=== PATIENT | male | born 1950 | race Caucasian/White ===

== ENCOUNTER 2017-09-25 15:55 | Emergency (ER) | payer MEDICARE, OTHER ==
[2017-09-25 16:14] VITALS: BP 142/83
--- OUTSIDE RECORDS SUMMARY | 2017-09-25 16:29 | XMS REPORT ---
:1950 External Reference #:[id number] Author Organization [facility] Address [address] [place] [address] Phone [phone] Care Team Providers Name Role Phone Slade Phan MD Care Team Information Manager [employer] Unavailable Slade Phan MD Primary Care Physician Unavailable Payers Type Date Identification Numbers Payment Provider Subscriber Health Maintenance Effective: Policy Number: Stanley Mustafa [facility] [place] [place] 05/19/2012 [id number] [facility] Group Number: [id number] [id number] Group Name: KATHY Allen [id number] PayID: [id number] Problems Date Description Provider Status Onset: 03/02/2013 Cellulitis and abscess of finger Slade Phan M.D. Active Social History Type Date Description Comments Cigarette Use Nonsmoker Smoking Patient has never smoked Allergies, Adverse Reactions, Alerts Date Description Reaction Status Severity Comments 03/02/2013 NKDA active Medications Medication Date Status Form Strength Qnty SIG Indications Ordering Provider Vitamin B12 Active Tablets ER 1 by mouth Unknown /0000 every day Multi Vitamin Active Tablets once daily Unknown / otc Docetaxel Active Concentrate 20mg/ml Unknown Lupron Active Unknown / Enoxaparin 07/30 Hx Solution 40mg/0.4M 40 mg sq L once a day Testing - for 30 days Doctor 07/30 Levofloxacin 07/30 Hx Tablets 500mg 7tabs 1 by mouth every day Testing - Doctor 07/30 No Active 03/24 Hx Slade A. Medications Sylvester - M.DMehrdad 07/30 Zithromax Z-Erick 03/14 Hx Tablets 250mg 1tabs 2 po qd x1 460 Slade A. then 1 po Sylvester, - qd as M.D. 03/19 Carpal Tunnel 05/10 Hx Right, 1unit wear as 354.0 Slade AMehrdad Bra Large s directed Sylvester, - including M.D. 03/14 sleep Pen VK 10/05 Hx 500mg 20uni 1 bid 462 Slade A. ts Sylvester - M.DMehrdad 10/15 Amoxil 06/11 Hx Tablets 875mg 20tab 1 PO bid Slade A. s Sylvester - M.D. 06/21 Nystatin Cream 05/06 Hx 60gm apply bid 782.1 prn Melo, - Afnp-C 10/05 Cipro HC Otic 12/08 Hx Suspension 10ml 3 gtts 380.10 Slade A. Affected Sylvester, - Ear bid X 7 M.D. 12/15 Days Pen VK 07/16 Hx Tablets 500mg 40tab 1 po qid Slade A. s Sylvester - M.D. 07/27 Hearing Test 01/14 Hx PT needs to Slade A. have A Sylvester, - hearing M.D. 10/22 test done. hearing loss r ear. Vosol HC 01/11 Hx Solution 2%;3 %;1 1Bott 4-5 gtts Miguel T. % le affected [place], - ear tid M.D. 02/11 until clear Cortisporin 11/27 Hx Suspension 5mg;48825 1Bott 4-5 gtts RT Miguel T. Otic U;10mg/ML le ear tid Midura, - until clear M.D. 01/11 Floxin Otic 11/20 Hx 1Bott 10 gtts le Affected [place], - Ear bid Afnp-C 11/27 Westcort 11/20 Hx Cream 0.2% 30gm apply to affected [place], - area Afnp-C 10/05 bid-tid prn /2008 Augmentin 11/14 Hx Tablets 875mg 20tab 1 PO bid Slade AMehrdad s With Food Sharath Phan M.D. 11/24 Bextra 03/10 Hx 20mg 30uni One PO Slade AMehrdad ts Daily as Sylvester - Directed [place] 04/09 Patella 03/10 Hx 1unit Wear as Slade Santillan s Directed Dionicio Phan - [place] 04/09 Physical 11/24 Hx Treatment [facility] - Evaluation M.Adolfo 12/14 Of Spine Strain Naproxen 11/24 Hx 375mg Tab 30uni 1 PO tid Kyaw Sheppard ts prn Pain Sharath Cornejo M.D. 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 Sharath Oropeza M.D. 07/10 Vioxx 06/30 Hx 50mg 30uni 1 PO qd Slade A. Sharath Oropeza M.D. 10/29 Augmentin 11/25 Hx 875mg 20uni 1 bid Slade A. Sharath Oropeza M.D. 07/17 Relafen 11/25 Hx 500mg 30uni 1 PO bid Slade A. Sharath Oropeza M.D. 07/17 Acetaminophen 00 Hx Tablets ER 650mg take one Unknown ER /0000 tablet q6h - as needed 07/30 or Colace Hx Capsules 100mg 1 by mouth Unknown /0000 twice daily - 07/30 Lovenox Hx Solution 40mg/0.4M daily Unknown /0000 L - 07/30 Oxycodone HCL 00/00 Hx Tablets 5mg 1 by mouth Unknown /0000 every 4 - hours as 07/30 Immunizations CPT Code Status Date Vaccine Lot # [id number] Given 10/19/2012 Tdap Tetanus, W Pertussis [id number] Given 11/14/2004 Td Immunization, For Use In Individuals 7 Years Or Older Vital Signs Date Vital Result Comment 09/25/2017 BP Systolic 120 mmHg BP Diastolic 62 mmHg Heart Rate 72 /min Body Temperature 98.4 F Respiratory Rate 16 /min Height 74 inches 6'2" Weight 230.50 lb BMI (Body Mass Index) 29.6 kg/m2 07/30/2017 BP Systolic 126 mmHg BP Diastolic 82 mmHg Heart Rate 64 /min Body Temperature 99.1 F Respiratory Rate 16 /min Height 74 inches 6'2" Weight 196.00 lb BMI (Body Mass Index) 25.2 kg/m2 03/01/2015 BP Systolic 134 mmHg BP Diastolic 82 mmHg Heart Rate 54 /min Body Temperature 98.4 F Respiratory Rate 16 /min Height 74 inches 6'2" Weight 187.38 lb BMI (Body Mass Index) 24.1 kg/m2 03/24/2013 BP Systolic 130 mmHg BP Diastolic 80 mmHg Heart Rate 56 /min Body Temperature 97.9 F Respiratory Rate 16 /min Height 74 inches 6'2" Weight 188.00 lb BMI (Body Mass Index) 24.1 kg/m2 03/02/2013 BP Systolic 134 mmHg BP Diastolic 80 mmHg Heart Rate 66 /min Body Temperature 97.2 F Respiratory Rate 18 /min Height 74 inches 6'2" Weight 191.00 lb BMI (Body Mass Index) 24.5 kg/m2 10/19/2012 BP Systolic 124 mmHg BP Diastolic 80 mmHg Heart Rate 68 /min Body Temperature 98.1 F Respiratory Rate 18 /min Height 74 inches 6'2" Weight 194.25 lb BMI (Body Mass Index) 24.9 kg/m2 03/14/2010 BP Systolic 120 mmHg BP Diastolic 80 mmHg Heart Rate 56 /min Body Temperature 98.2 F Respiratory Rate 16 /min O2 % BldC Oximetry 99 % Height 74 inches 6'2" Weight 184.00 lb BMI (Body Mass Index) 23.6 kg/m2 05/10/2009 BP Systolic 126 mmHg BP Diastolic 80 mmHg Heart Rate 64 /min Body Temperature 97.3 F Respiratory Rate 12 /min Height 74 inches 6'2" Weight 192.00 lb BMI (Body Mass Index) 24.6 kg/m2 10/05/2008 BP Systolic 140 mmHg BP Diastolic 82 mmHg Heart Rate 64 /min Body Temperature 98.7 F Respiratory Rate 16 /min Height 74 inches 6'2" Weight 192.00 lb BMI (Body Mass Index) 24.6 kg/m2 01/27/2008 BP Systolic 128 mmHg BP Diastolic 80 mmHg Heart Rate 60 /min Body Temperature 97.2 F Respiratory Rate 16 /min Height 74 inches 6'2" Weight 188.00 lb BMI (Body Mass Index) 24.1 kg/m2 05/06/2007 BP Systolic 102 mmHg BP Diastolic 60 mmHg Heart Rate 68 /min Body Temperature 97.3 F Height 74 inches 6'2" Weight 185.00 lb BMI (Body Mass Index) 23.8 kg/m2 04/23/2007 BP Systolic 146 mmHg BP Diastolic 62 mmHg Heart Rate 64 /min Body Temperature 97.8 F Height 74 inches 6'2" Weight 189.00 lb BMI (Body Mass Index) 24.3 kg/m2 12/08/2006 BP Systolic 120 mmHg BP Diastolic 62 mmHg Heart Rate 72 /min Body Temperature 98.5 F Height 74 inches 6'2" Weight 187.00 lb BMI (Body Mass Index) 24.0 kg/m2 10/22/2006 BP Systolic 110 mmHg BP Diastolic 70 mmHg Heart Rate 64 /min Body Temperature 98.7 F Weight 189.00 lb 07/15/2006 BP Systolic 128 mmHg BP Diastolic 70 mmHg Heart Rate 76 /min Body Temperature 99.2 F Weight 194.00 lb 01/14/2005 BP Systolic 112 mmHg BP Diastolic 70 mmHg Heart Rate 72 /min Body Temperature 97.7 F Weight 186.00 lb 11/27/2004 BP Systolic 124 mmHg BP Diastolic 80 mmHg Heart Rate 72 /min Weight 186.00 lb 11/20/2004 BP Systolic 148 mmHg BP Diastolic 80 mmHg Heart Rate 76 /min Body Temperature 98.6 F Weight 186.00 lb 11/14/2004 BP Systolic 122 mmHg BP Diastolic 80 mmHg Heart Rate 72 /min Body Temperature 99.2 F Weight 186.00 lb 03/10/2003 BP Systolic 128 mmHg BP Diastolic 86 mmHg Heart Rate 64 /min Weight 189.00 lb 06/29/2001 BP Systolic 122 mmHg BP Diastolic 80 mmHg Heart Rate 72 /min Weight 190.00 lb 11/24/2000 BP Systolic 120 mmHg BP Diastolic 74 mmHg Heart Rate 68 /min Weight 193.00 lb 10/29/2000 BP Systolic 130 mmHg BP Diastolic 80 mmHg Heart Rate 82 /min Weight 194.00 lb 07/17/2000 BP Systolic 140 mmHg BP Diastolic 90 mmHg Heart Rate 60 /min Weight 200.00 lb 06/30/2000 BP Systolic 120 mmHg BP Diastolic 80 mmHg Heart Rate 68 /min Weight 190.00 lb 11/29/1999 BP Systolic 142 mmHg LA, SM Cuff BP Diastolic 88 mmHg LA, SM Cuff Heart Rate 66 /min Apical Reg Respiratory Rate 12 /min Easy Weight 195.00 lb 11/26/1999 BP Diastolic 62 mmHg Weight 129.00 lb 11/26/1999 BP Systolic 126 mmHg BP Diastolic 80 mmHg Weight 190.00 lb 12/28/1997 BP Systolic 130 mmHg BP Diastolic 80 mmHg Weight 186.00 lb 08/26/1997 BP Systolic 150 mmHg BP Diastolic 92 mmHg Weight 188.00 lb 07/22/1997 BP Systolic 150 mmHg BP Diastolic 94 mmHg Weight 196.00 lb Results Test Date Test Result H/L Range Note CBC Auto Diff 09/09/2017 White Blood Count 10.3 10^3/uL 3.5-10.8 Red Blood Count 4.48 10^6/uL 4.0-5.4 Hemoglobin 14.1 g/dL 14.0-18.0 Hematocrit 41 % Low 42-52 Mean Corpuscular Volume 92 fL 80-94 Mean Corpuscular Hemoglobin 31 pg 27-31 Mean Corpuscular HGB Conc 34 g/dL 31-36 Red Cell Distribution Width 13 % 10.5-15 Platelet Count 273 10^3/uL 150-450 Mean Platelet Volume 7.3 um3 Low 7.4-10.4 Abs Neutrophils 9.4 10^3/uL High 1.5-7.7 Abs Lymphocytes 0.6 10^3/uL Low 1.0-4.8 Abs Monocytes 0.3 10^3/uL 0-0.8 Abs Eosinophils 0 10^3/uL 0-0.6 Abs Basophils 0 10^3/uL 0-0.2 Abs Nucleated RBC 0 10^3/uL Granulocyte % 91.2 % High 38-83 Lymphocyte % 5.7 % Low 25-47 Monocyte % 2.8 % 0-7 Eosinophil % 0 % 0-6 Basophil % 0.3 % 0-2 Nucleated Red Blood Cells % 0 Comp Metabolic Panel 09/09/2017 Sodium 139 mmol/L 139-145 Potassium 4.0 mmol/L 3.5-5.0 Chloride 104 mmol/L 101-111 Co2 Carbon Dioxide 24 mmol/L 22-32 Anion Gap 11 mmol/L 2-11 Glucose 127 mg/dL High 70-100 Blood Urea Nitrogen 21 mg/dL 6-24 Creatinine 0.80 mg/dL 0.67-1.17 BUN/Creatinine Ratio 26.3 High 8-20 Calcium 9.7 mg/dL 8.6-10.3 Total Protein 7.7 g/dL 6.4-8.9 Albumin 4.4 g/dL 3.2-5.2 Globulin 3.3 g/dL 2-4 Albumin/Globulin Ratio 1.3 1-3 Total Bilirubin 0.60 mg/dL 0.2-1.0 Alkaline Phosphatase 85 U/L 34-104 Alt 17 U/L 7-52 Ast 18 U/L 13-39 Egfr Non- 97.0 >60 Egfr 124.8 >60 1 Laboratory test 09/09/2017 PSA Diagnostic 0.824 ng/mL 0-4.000 2 finding Laboratory test 07/30/2017 PSA 2.1 ng/mL 0.0-4.0 finding Laboratory test 03/18/2017 Surgical Pathology SEE RESULT BELOW 3, 4 finding Laboratory test 02/28/2017 Blood Urea Nitrogen 21 mg/dL 6-24 finding BUN Creatinine 02/28/2017 Creatinine 0.80 mg/dL 0.67-1.17 Egfr Non- 97.3 >60 Egfr 125.2 >60 5 Laboratory test finding 02/28/2017 PSA Screening 106.607 ng/mL High 0-4.0 6 Laboratory test finding 08/03/2013 PSA 4.6 ng/mL High 0.0-4.0 7 Ua - Non Micro (Fma) 03/24/2013 Appearance CLEAR Color YELLOW Glucose, Urine (Fma/CMC/CTX) NEG Bilirubin NEG Ketones NEG SP Grav 1.010 Blood NEG PH 6.5 Protein NEG Urobil 0.2 Nitrite NEG Leukocytes (Fma/CMC/Centrex) NEG CBC Electronic (Fma) 03/11/2013 WBC 4.6 3.6-9.6 RBC 4.71 3.90-5.70 Hemoglobin (Fma/CMC/CTX) 14.9 g/dL 12.1 - 17.2 Hematocrit (Fma/CMC/CTX) 43.4 % 36.1 - 50.3 Platelets 266 10^3/ul 150-400 Lymph% 21.5 20.5-51.1 Mixed% 5.3 Neutrophils % 73.2 Mean Corpuscular Vol 92 82.2-97.4 Mean Corpuscular Hemoglobin 31.5 27.6-33.3 Mean Corpuscular Hemo Concen 34.3 32.0-36.0 RDW 11.4 Low 11.6-13.7 Mean Platelet Volume 6.5 6.5-11.0 Laboratory test finding 03/11/2013 PSA 3.10 ng/mL 0.00-4.00 Lipid Profile 03/11/2013 Cholesterol 131 mg/dL 120-200 HDL 35 mg/dL 30-70 Triglycerides 47 mg/dL 30-200 HDL Risk Factor 3.7 CALC 0.0-4.4 LDL (Calculated) 86 CALC 0-129 VLDL (Calculated) 9 mg/dL 0-50 Comprehensive Metabolic Prof 03/11/2013 Albumin 4.2 g/dL 3.8-5.5 Alk. Phos. 89 U/L 22-95 Alt (SGPT) 15 U/L 10-40 Ast (Sgot) 26 U/L 5-34 BUN 15 mg/dL 6-26 Calcium 8.6 mg/dL 8.6-10.2 Chloride 102 mEq/L 94-112 Creatinine 1.1 mg/dL 0.6-1.4 Carbon Dioxide 24 mEq/L 21-32 Glucose 91 mg/dL 70-105 Sodium 139 mEq/L 134-149 Total Bilirubin 0.6 mg/dL 0.2-1.3 Total Protein 6.6 g/dL 6.3-8.1 Potassium 4.3 mEq/L 3.6-5.5 Globulin 2.4 g/dL 2.0-4.8 A/G Ratio 1.7 Calc 0.6-2.3 BUN/Creat Ratio 13.5 Calc 8.0-36.0 Laboratory test finding 03/11/2013 Lyme Disease Serology Negative Negative 8 CBC Auto Diff 03/02/2013 White Blood Count 5.2 10^3/uL 4.8-10.8 Red Blood Count 4.62 10^6/uL 4.0-5.4 Hemoglobin 14.0 g/dL 14.0-18.0 Hematocrit 42 % 42-52 Mean Corpuscular Volume 92 fL 80-94 Mean Corpuscular Hemoglobin 30 pg 27-31 Mean Corpuscular HGB Conc 33 g/dL 31-36 Red Cell Distribution Width 13 % 10.5-15 Platelet Count 211 10^3/uL 150-450 Mean Platelet Volume 8 um3 7.4-10.4 Abs Neutrophils 3.7 10^3/uL 1.5-7.7 Abs Lymphocytes 1.0 10^3/uL 1.0-4.8 Abs Monocytes 0.4 10^3/uL 0-0.8 Abs Eosinophils 0.1 10^3/uL 0-0.6 Abs Basophils 0 10^3/uL 0-0.2 Abs Nucleated RBC 0 10^3/uL Granulocyte % 70.8 % 38-83 Lymphocyte % 19.1 % Low 25-47 Monocyte % 8.3 % 1-9 Eosinophil % 1.1 % 0-6 Basophil % 0.7 % 0-2 Nucleated Red Blood Cells % 0.1 Comp Metabolic Panel 03/02/2013 Sodium 135 mmol/L 133-145 Potassium 3.9 mmol/L 3.5-5.0 Chloride 101 mmol/L 101-111 Co2 Carbon Dioxide 28.0 mmol/L 22-32 Anion Gap 6.0 mmol/L 2-11 Glucose 89 mg/dL 70-100 Blood Urea Nitrogen 12 mg/dL 6-24 Creatinine 1.10 mg/dL 0.50-1.40 BUN/Creatinine Ratio 10.9 8-20 Calcium 9.0 mg/dL 8.1-9.9 Total Protein 6.9 g/dL 6.2-8.1 Albumin 3.8 g/dL 3.2-5.2 Globulin 3.1 g/dL 2-4 Albumin/Globulin Ratio 1.2 1-3 Total Bilirubin 0.9 mg/dL 0.4-1.5 Alkaline Phosphatase 79 U/L 30-110 Alt 15 U/L 14-54 Ast 21 U/L 12-42 Egfr Non- 68.3 >60 Egfr 87.8 >60 9 Laboratory test finding 03/02/2013 C Reactive Protein 0.6 mg/dL High Less than 0.5 Blood Culture (SEE NOTE) 10 Lyme Disease Serology Negative Negative 11 Laboratory test finding 05/10/2009 PSA 0.40 ng/mL 0.00-4.00 Lipid Profile 05/10/2009 Cholesterol 151 mg/dL 120-200 HDL 51 mg/dL 30-70 Triglycerides 52 mg/dL 30-200 HDL Risk Factor 3.0 CALC Low 4.2-7.0 LDL (Calculated) 90 CALC 0-129 VLDL (Calculated) 10 mg/dL 0-50 Comprehensive Metabolic Prof 05/10/2009 Albumin 4.4 g/dL 3.8-5.5 Alk. Phos. 66 U/L 22-95 Alt (SGPT) 19 U/L 10-40 Ast (Sgot) 29 U/L 5-34 BUN 14 mg/dL 6-26 Calcium 9.6 mg/dL 8.6-10.2 Chloride 104 mEq/L 94-112 Creatinine 1.1 mg/dL 0.6-1.4 Carbon Dioxide 24 mEq/L 21-32 Glucose 89 mg/dL 70-105 Sodium 139 mEq/L 134-149 Total Bilirubin 0.5 mg/dL 0.2-1.3 Total Protein 6.8 g/dL 6.3-8.1 Potassium 4.3 mEq/L 3.6-5.5 Globulin 2.5 g/dL 2.0-4.8 A/G Ratio 1.8 Calc 0.6-2.2 BUN/Creat Ratio 12.7 Calc 8.0-36.0 Laboratory test finding 10/05/2008 Quickstrep negative Negative Throat - Beta Strep Fma negative@48hrs CBC With Electronic Diff 07/13/2007 White Blood Count 7.4 CUMM 4.8-10.8 12 Abs Basophils 0 0-0.2 12 Abs Eosinophils 0.2 0-0.6 12 Absolute Neutrophil Count 6.0 1.5-7.7 12 Abs Lymphs 0.8 Low 1.0-4.8 12 Abs Mononuclear 0.5 0-0.8 12 Basophil % 0.1 % 0-2 12 Hematocrit 42 % 42-52 12 Hemoglobin 14.6 g/dL 14.0-18.0 12 Eosinophil % 2.5 % 0-6 12 Gran % 80.4 % 38-83 12 Lymph % 10.4 % Low 20-45 12 Mean Corpuscular HGB Cone 35 g/dL 32-36 12 Mean Corpuscular Hemoglob 31 pg 27-31 12 Mean Corpuscular Volume 89 um3 80-94 12 Mean Platelet Volume 7.7 um3 7.4-10.4 12 Mononuclear % 6.6 % 1-9 12 Platelet Count 225 CUMM 150-450 12 Red Cell Count 4.76 CUMM 4.6-6.2 12 Redcell Distribution WDTH 13 % 10.5-15 12 Laboratory test finding 10/22/2006 Quickstrep NEGATIVE Negative Throat - Beta Strep Fma NEGATIVE @ 48HRS Laboratory test finding 07/15/2006 Quickstrep NEGATIVE Negative Throat - Beta Strep Fma POSITIVE @24HRS CBC Electronic (CMC) 04/08/2003 WBC 4.4 CUMM Low 4.8-10.8 RBC 4.69 CUMM 4.2-5.4 Hemoglobin (Fma/CMC/CTX) 14.6 g/dL 12.0-16.0 Hematocrit (Fma/CMC/CTX) 44 % 35-47 Mean Corpuscular Vol 94 UM3 79-97 Mean Corpuscular Hemaglobin 31 pg 27-31 Mean Corpuscular Hemo Concen 33 g/dL 32-36 RDW 12 10.5-15 Platelets 204 CUMM 150-450 Mean Platelet Volume 8.2 7.4-10.4 Granulocytes 61.7 % 38-83 Lymphocytes 26.8 % 20-45 Monocytes 7.8 % 1-9 Eosinophil 2.8 0-6 Basophil% 0.9 0-2 Abs Lymphs 1.2 1.0-4.8 Abs Mononuclear 0.3 0-0.8 Abs Grans 2.8 1.5-7.7 Abs Eosinophils 0.1 0-0.6 Abs Basophils 0 0-0.2 1 Because ethnic data is not always readily available, this report includes an eGFR for both -Americans and non- Americans. The National Kidney Disease Education Program (NKDEP) does not endorse the use of the MDRD equation for patients that are not between the ages of 18 and 70, are , have extremes of body size, muscle mass, or nutritional status, or are non- or non-. According to the National Kidney Foundation, irrespective of diagnosis, the stage of the disease is based on the level of kidney function: Stage Description GFR(mL/min/1.73 m(2)) 1 Kidney damage with normal or decreased GFR 90 2 Kidney damage with mild decrease in GFR 60-89 3 Moderate decrease in GFR 30-59 4 Severe decrease in GFR 15-29 5 Kidney failure <15 (or dialysis) 2 Serum levels of PSA measured using the [employer] [place] DXI Hybritech immunoassay should not be interpreted as absolute evidence of the presence or absence of disease. The PSA value should be used in conjunction with other pertinent clinical diagnostic procedures. The values obtained with different assay methods or kits cannot be used interchangeably. 3 [id number] 4 SEE RESULT BELOW Name: JONN MUSTAFA : [address]: Denny Carney MD Acct: [id number] Unit: [id number] AGE: 66 Location: [facility] Re03/18/17 SEX: M Status: REG REF SPEC: [id number] THAO: 03/18/17- SUBM DR: Denny Carney MD REQ: [id number] RECD: 03/18/172 STATUS: MARISABEL EDDY DR: Slade Phan MD _ ORDERED: S PATH PROST BX/4 COMMENTS: [id number] FINAL DIAGNOSIS 1. Prostate, left apex, core biopsy: -- Prostate adenocarcinoma, small acinar type, with: Celeste score: 4+3=7 (group grade 3), Celeste's 4 pattern constitutes 60% of tumor volume. Extent of local invasion: Tumor involves all tissue fragments measures 27 mm in aggregate dimension and occupies 70% of total core volume. Perineural invasion: Present. Lymphovascular invasion: Not seen. Other findings: None. 2. Prostate, left base, core biopsy: -- Prostate adenocarcinoma, small acinar type, with: Celeste score: 4+3=7 (group grade 3), Bryant's 4 pattern constitutes 70% of total tumor volume. Extent of local invasion: Tumor involves multiple core fragments measures 25 mm in aggregate dimension and occupies 70% of total core volume. Perineural invasion: Present. Lymphovascular invasion: Not seen. Other findings: None 3. Prostate, right apex, core biopsies: -- Prostate adenocarcinoma, small acinar type, with: Celeste score: 4+3=7 (group grade 3). Celeste's 4 pattern constitutes 60% of total tumor volume Extent of local invasion: Tumor involves all tissue fragments and measures approximately 17 mm in aggregate span and occupies 70% of total tissue volume. Perineural invasion: Present. Lymphovascular invasion: Not seen. Other findings: None. 4. Prostate, right base, core biopsies: -- Prostate adenocarcinoma, small acinar type, with: Bryant score: 4+3=(group grade 3), Bryant's 4 pattern constitutes 60 % of total CONTINUED ON NEXT PAGE * ML=Testing performed at Main Lab DEPARTMENT OF PATHOLOGY, [address] [place] [address] Kyaw Madsen M.D. Director [place] # [id number] RUN DATE: 03/19/17 [facility] LAB LIVE PAGE 2 Patient: JONN MUSTAFA [id number] (Continued) FINAL DIAGNOSIS (Continued) tumor volume. Extent of local invasion: Tumor involves all cores, measures 28 mm in maximal aggregate dimension and occupies 90% of core volume.. Perineural invasion: Present. Lymphovascular invasion: Not seen. Other findings: None. . Comment: . PRE-OPERATIVE DIAGNOSIS Moderately enlarged prostate, elevated PSA; GUQ=429, hard nodular right lobe by digital rectal exam POST-OPERATIVE DIAGNOSIS GROSS DESCRIPTION 1. The specimen is received in formalin labeled, Left Prostate Lobe [place], and consists of three fragmented soto soft tissue cores ranging from 0.4 x 0.1 cm to 1.1 x 0.1 cm, which are submitted entirely in one cassette. 2. The specimen is received in formalin labeled, Left Prostate Lobe [place], and consists of three fragmented soto soft tissue cores ranging from 1.0 x by 0.1 cm to 1.2 x 0.1 cm, which are submitted entirely in one cassette. 3. The specimen is received in formalin labeled, Right Prostate Lobe [place], and consists of two soto soft tissue cores measuring 0.5 x 0.1 cm and 1.5 x 0.1 cm, which are submitted entirely in one cassette. 4. The specimen is received in formalin labeled, Right Prostate Lobe Base, and consists of three fragmented soto soft tissue cores ranging from 0.5 x 0.1 cm to 1.8 x 0.1 cm, which are submitted entirely in one cassette. CONTINUED ON NEXT PAGE * ML=Testing performed at Main Lab DEPARTMENT OF PATHOLOGY, [address] [place] [address] Kyaw Madsen M.D. Director [facility] # [id number] RUN DATE: 03/19/17 [facility] LAB LIVE PAGE 3 Patient: JONN MUSTAFA [id number] (Continued) GROSS DESCRIPTION (Continued) Signed (signature on file) Kyaw Madsen MD 1131 END OF REPORT * ML=Testing performed at Main Lab DEPARTMENT OF PATHOLOGY, [address] [place] [address] Kyaw Madsen M.D. Director [facility] # [id number] 5 Because ethnic data is not always readily available, this report includes an eGFR for both -Americans and non- Americans. The National Kidney Disease Education Program (NKDEP) does not endorse the use of the MDRD equation for patients that are not between the ages of 18 and 70, are , have extremes of body size, muscle mass, or nutritional status, or are non- or non-. According to the National Kidney Foundation, irrespective of diagnosis, the stage of the disease is based on the level of kidney function: Stage Description GFR(mL/min/1.73 m(2)) 1 Kidney damage with normal or decreased GFR 90 2 Kidney damage with mild decrease in GFR 60-89 3 Moderate decrease in GFR 30-59 4 Severe decrease in GFR 15-29 5 Kidney failure <15 (or dialysis) 6 Serum levels of PSA measured using the [employer] [place] DXI Hybritech immunoassay should not be interpreted as absolute evidence of the presence or absence of disease. The PSA value should be used in conjunction with other pertinent clinical diagnostic procedures. The values obtained with different assay methods or kits cannot be used interchangeably. 7 RESULTS VERIFIED BY REPEAT ANALYSIS 8 Serologic response to B. burgdorferi infection is not detected, but cannot rule out early infection during which low or undetectable antibody levels to B. burgdorferi may be present. If clinically indicated, a new serum specimen should be submitted in 7-14 days. Test Performed by: [place] [id number] Director Payment: Dima Bojorquez III, M.D. 9 Because ethnic data is not always readily available, this report includes an eGFR for both -Americans and non- Americans. The National Kidney Disease Education Program (NKDEP) does not endorse the use of the MDRD equation for patients that are not between the ages of 18 and 70, are , have extremes of body size, muscle mass, or nutritional status, or are non- or non-. According to the National Kidney Foundation, irrespective of diagnosis, the stage of the disease is based on the level of kidney function: Stage Description GFR(mL/min/1.73 m(2)) 1 Kidney damage with normal or decreased GFR 90 2 Kidney damage with mild decrease in GFR 60-89 3 Moderate decrease in GFR 30-59 4 Severe decrease in GFR 15-29 5 Kidney failure <15 (or dialysis) 10 RUN DATE: 03/07/13 [facility] LAB LIVE PAGE 1 RUN TIME: [address] [place] [id number] Specimen Inquiry Name: JONN MUSTAFA: [address]: Drake Alejandre MD Acct: [id number] Unit: [id number] AGE: 62 Location: ED Re03/02/13 SEX: M Status: DEP ER SPEC: [id number] THAO: 03/02/[address]: Cindy GUZMAN REQ: [id number] RECD: 03/02/13 STATUS: ADAM EDDY DR: [facility] Slade Phan MD _ SOURCE: BLOOD,VENO SPDESC: ORDERED: Blood Cult COMMENTS: Patient is On Antibiotics? NO Procedure Result Verified Site Aerobic Culture Bottle Final 03/07/13- 1314 ML No Growth Day 5 Anaerobic Culture Bottle Final 03/07/13- 1314 ML No Growth Day 5 END OF REPORT * ML=Testing performed at Main Lab DEPARTMENT OF PATHOLOGY, [address] [place] [address] Kyaw Madsen M.D. Director [facility] Permit #[id number] 11 Serologic response to B. burgdorferi infection is not detected, but cannot rule out early infection during which low or undetectable antibody levels to B. burgdorferi may be present. If clinically indicated, a new serum specimen should be submitted in 7-14 days. Test Performed by: [address] [address] Director Payment: Dima Bojorquez III, M.D. 12 [facility] 07/16/07 Procedures Date CPT Code Description Status 03/24/2013 74903 CPHL SHQ Completed 01/27/2008 97885 Destruction Of Flat Warts Or Molluscum Contagiosum, Completed Milia To 15 01/27/2008 25903 Destruction Additiona 2 thru 14 Completed 01/27/2008 09033 Destruction-1 Beign Lesion Completed 01/18/1998 68907 Destruction Of Flat Warts Or Molluscum Contagiosum, Completed Milia To 15 12/28/1997 23708 Destruction Of Flat Warts Or Molluscum Contagiosum, Completed Milia To 15 Encounters Type Date Location Provider CPT E/M Dx Office Visit 07/30/2017 1:00p [facility] Office Slade Phan M.D. 27713 Office Visit 03/01/2015 2:00p [facility] Office Meño Moffett-C 27504 K40.21 Office Visit 03/02/2013 11:30a [facility] Office Slade Phan M.D. 85704 681.00 Office Visit 10/19/2012 2:00p [facility] Office RE Richards 41469 959.5 904.42 V06.5 E849.0 Office Visit 03/14/2010 3:00p [facility] Slade Phan M.D. 08112 460 719.41 Office Visit 05/10/2009 10:00a [facility] Slade Phan M.D. 42071 354.0 V76.51 V76.44 V77.91 Office Visit 10/05/2008 3:10p [facility] Slade Phan M.D. 64327 462 Office Visit 01/27/2008 1:10p [facility] Slade Phan M.D. 50216 078.10 Office Visit 01/27/2008 1:10p [facility] Slade Phan M.D. 38992 078.10 Office Visit 05/06/2007 1:45p [facility] Jimbo Moffett 91117 782.1 782.8 Office Visit 12/08/2006 2:10p [facility] Office Slade Phan M.D. 71690 380.10 Office Visit 10/22/2006 4:30p [facility] Jimbo Moffett 85858 462 Office Visit 07/15/2006 4:30p [facility] [address] [address] 462 Office Visit 01/14/2005 3:10p [facility] Office Slade Phan M.D. 34138 389.9 Office Visit 11/27/2004 9:50a [facility] Miguel Shaffer M.D. 63107 380.10 Office Visit 11/20/2004 10:45a [facility] [address] [address] 380.10 692.9 Office Visit 11/14/2004 3:10p [facility] Slade Phan M.D. 59661 914.8 V06.5 Office Visit 03/10/2003 9:00a [facility] Slade Phan M.D. 19439 715.09 728.89 Office Visit 06/29/2001 9:10a [facility] Slade Phan M.D. 14682 Office Visit 11/24/2000 3:10p [facility] Kyaw Cornejo M.D. 43577 Office Visit 10/29/2000 3:00p [facility] Slade Phan M.D. 91800 Office Visit 07/17/2000 2:00p [facility] Office Slade Phan M.D. 97994 Office Visit 06/30/2000 2:10p [facility] Slade Phan M.D. 61345 Plan of Care 09/25/2017 - Nubia Grace, NPS61.212A Laceration w/o fb of r mid finger w/ o damage to nail, initL03.011 Cellulitis of right fingerComments:Please go directly to the emergency department for bloodwork and treatment.
--- NOTE | 2017-09-25 18:14 | RAD ---
Indication: RIGHT ring finger wound over the DIP joint. Question fracture. Question air in the joint. Comparison: March 02, 2013 Technique: 3 views RIGHT fourth finger Report: Soft tissue swelling most prominent over the distal aspect at the level of the DIP joint. No discrete soft tissue ulceration, subcutaneous emphysema, conspicuous foreign body. Negative for intra-articular gas. Negative for periosteal reaction or osteolysis. Severe osteoarthritis at the interphalangeal joints with progression. IMPRESSION: 1. Soft tissue swelling most prominent at the level of the distal interphalangeal joint. 2. Negative for radiographic findings of osteomyelitis or septic arthritis. If this remains a clinical concern consider MRI or in setting of contraindication to MRI 3 phase bone scan for further assessment. 3. Advanced osteoarthritis with progression.
--- NOTE | 2017-09-28 18:58 | ED ---
Sis Kennedy Gabriel, scribed for Drake Del Rio MD on 09/25/17 at 1747 . 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 The patient rates the pain 3/10 in severity. Patient reports swelling and pain in 4th digit. - History of Current Complaint Chief Complaint: EDExtremityUpper Stated Complaint: RT FINGER INJURY Hx Obtained From: Patient Mechanism Of Injury: Other Onset/Duration: Started Hours Ago, Still Present Timing: Constant Severity Initially: Mild Severity Currently: Mild Aggravating Factor(s): Movement Associated Signs & Symptoms: Positive: Swelling - Allergies/Home Medications Allergies/Adverse Reactions: Allergies Allergy/AdvReac Type Severity Reaction Status Date / Time No Known Allergies Allergy Verified 09/25/17 16:14 Home Medications: Home Medications DOCEtaxel* [taxOTERE*] 0 mg IM ONCE 09/25/17 [History Confirmed 09/25/17] Dexamethasone TAB* [Decadron TAB*] 8 mg PO DAILY 09/25/17 [History Confirmed 03/05] Leuprolide 11.25 MG KIT [Lupron Depot*] 11.25 mg IM ONCE 09/25/17 [History Confirmed 09/25/17] Prochlorperazine TAB* [Compazine Tab*] 10 mg PO Q6H PRN 09/25/17 [History Confirmed 09/25/17] predniSONE TAB* [Deltasone TAB*] 5 mg PO BID 09/25/17 [History Confirmed ] PMH/Surg Hx/FS Hx/Imm Hx Endocrine/Hematology History: Denies: Hx Anemia Cardiovascular History: Reports: Hx Hypertension - NOT ON MEDS Respiratory History: Denies: Hx Asthma, Hx Chronic Obstructive Pulmonary Disease (COPD) Musculoskeletal History: Denies: Other Musculoskeletal History Sensory History: Reports: Hx Contacts or Glasses - GLASSES Denies: Hx Hearing Aid Opthamlomology History: Reports: Hx Contacts or Glasses - GLASSES - Cancer History Cancer Type, Location and Year: PROSTATE - Surgical History Surgery Procedure, Year, and Place: TONSILLECTOMY A CHILD. HERNIA REPAIR X 2 35 YRS AGO. 2004-SHOULDER REPAIR- [facility]. 2007 SHOULDER REPAIR-[facility] [place]. BILAT VARICOSE VEIN SURGERY 2013 [facility] [place]. BILATERAL INGUINA HERNIA REPAIR W/ [facility] DR. SKINNER 2014 Hx Anesthesia Reactions: No Infectious Disease History: No Infectious Disease History: Denies: Traveled Outside the [place] in Last 30 Days - Family History Known Family History: Positive: None - Social History Alcohol Use: Occasionally Alcohol Amount: 1/WEEK Substance Use Type: Reports: None Smoking Status (MU): Never Smoked Tobacco Have You Smoked in the Last Year: No Review of Systems Constitutional: Negative Respiratory: Negative Positive: Other - pain at right hand Positive: Other - swelling, 2 mild lacs Negative: Paresthesia, Numbness All Other Systems Reviewed And Are Negative: Yes Physical Exam Triage Information Reviewed: Yes Vital Signs On Initial Exam: Initial Vitals Temp Pulse Resp BP Pulse Ox 99.1 F 66 18 142/83 97 09/25/17 16:10 09/25/17 16:10 09/25/17 16:10 09/25/17 16:10 09/25/17 16:10 Vital Signs Reviewed: Yes Appearance: Positive: Well-Appearing, No Pain Distress Skin: Positive: Warm, Skin Color Reflects Adequate Perfusion, Dry, Other - There are 2 lacerations present. Both superficial and about 1cm in length, one on the dorsum that is oblique and one volar that is non-penetrating. Both on right ring finger Head/Face: Positive: Normal Head/Face Inspection Eyes: Positive: Normal, EOMI, TITI, Conjunctiva Clear ENT: Positive: Normal ENT inspection, Hearing grossly normal Neck: Positive: Supple Respiratory/Lung Sounds: Positive: Other - No respiratory distress Cardiovascular: Positive: RRR Musculoskeletal: Positive: Strength/ROM Intact Neurological: Positive: Alert, Oriented to Person Place, Time Psychiatric: Positive: Normal, Affect/Mood Appropriate Diagnostics - Vital Signs Vital Signs Temp Pulse Resp BP Pulse Ox 09/25/17 16:10 99.1 F 66 18 142/83 97 - Laboratory Lab Statement: Any lab studies that have been ordered have been reviewed, and results considered in the medical decision making process. - Radiology No standard instances Xray Interpretation: No Acute Changes - no fracture seen, no air in joint Radiology Interpretation Completed By: ED Physician Course/Dx - Diagnoses Differential Diagnosis/HQI/PQRI: Positive: Laceration - right 4th finger Provider Diagnoses: Laceration of finger Discharge - Sign-Out/Discharge Documenting (check all that apply): Discharge/Admit/Transfer - Discharge Plan Condition: Good Disposition: HOME Patient Education Materials: Laceration (ED) Referrals: Slade Phan MD [Primary Care Provider] - - Billing Disposition and Condition Condition: GOOD Disposition: HOME The documentation as recorded by the Sis pena Gabriel accurately reflects the service I personally performed and the decisions made by Quang braun Richard, MD.
== END 2017-09-25 18:39 | disposition home or self-care (01) ==
LOC: ED 15:55
DX: S61.214A Laceration without foreign body of right ring finger without damage to nail, initial encounter (principal); W27.0XXA Contact with workbench tool, initial encounter; Y93.89 Activity, other specified; Y92.9 Unspecified place or not applicable; I10 Essential (primary) hypertension; Z85.46 Personal history of malignant neoplasm of prostate
CPT/HCPCS: 73140; 99282

== ENCOUNTER 2019-03-25 07:10 | Observation (INO) | payer OTHER ==
--- NOTE | 2019-03-12 12:16 | HP ---
HISTORY AND PHYSICAL: DATE OF SURGERY: 03/25/19 DATE OF OFFICE VISIT: 03/12/19 SURGEON: Tiffanie Holguin MD * (DICTATED BY TATE MUSE) PROCEDURE: Right total knee arthroplasty. CHIEF COMPLAINT: Right knee pain. HISTORY OF PRESENT ILLNESS: Mr. Mast is a 68-year-old gentleman with complaints of right knee pain, who has failed conservative treatment and elected to proceed with a right total knee arthroplasty. PAST MEDICAL HISTORY: Prostate cancer. PAST SURGICAL HISTORY: Prostatectomy, ORIF of the left wrist, and forearm, bilateral shoulder surgeries, tonsillectomy, hernia repair x2, and varicose vein stripping. CURRENT MEDICATIONS: 1. Vitamin B. 2. Fish oil. 3. Lupron injections. 4. Multivitamin. ALLERGIES: No known drug allergies. FAMILY HISTORY: Stroke, abdominal aortic aneurysm, brain tumor, cancer. SOCIAL HISTORY: A 68-year-old gentleman. He lives with his . He does not smoke or use drugs. Uses occasional alcohol. REVIEW OF SYSTEMS: A complete 14-point review of systems was reviewed with the patient. All negative and noncontributory. He denies history of DVT, PE, hepatitis, HIV or anesthesia problems. PHYSICAL EXAMINATION GENERAL: He is well developed, well nourished, in no acute distress. VITAL SIGNS: He stands 75 inches tall, weighs 203 pounds. His blood pressure 130/88, heart rate 76. HEENT: Normocephalic, atraumatic. NECK: Supple. No palpable lymph nodes. PULMONARY: The lungs are clear to auscultation bilaterally. CARDIO: Regular rate and rhythm. Strong S1, S2. ABDOMEN: Soft, nontender, nondistended. MUSCULOSKELETAL: Right lower extremity, the skin is intact. No open wounds or abrasions. There is moderate effusion of the right knee joint. Range of motion is 20 to 120 degrees of flexion. There is a 12-degree valgus deformity. His calf is soft and nontender. He is able to dorsiflex and plantarflex and has a 2+ dorsal pedis pulse. NEUROLOGICAL: He is alert and oriented x3. ASSESSMENT AND PLAN: Mr. Mast is a 68-year-old gentleman with severe end- stage osteoarthritis of the right knee. He has failed conservative treatment and elected to proceed with a right total knee arthroplasty. The surgery is scheduled for 03/25/[address] Holguin. The risk and benefits of the surgery were discussed with the patient at today's visit. All of his questions were answered. He will follow up with Dr. Holguin 2 weeks after the surgery. TATE MUSE [id number]/[facility] #: [id number] [facility]
[~2019-03-25 07:10] MED LIST: Buffered Lidocaine 1% SYRIN* 1 ML/SYRINGE INTRADERM ONE; Famotidine IV* 10 MG/ML 2 ML (20 mg) IV ONE; Lactated Ringers 1000 ML Bag* 1,000 ML IV SCH; Tranexamic Acid 1,000 MG in NS 0.9% 50 ML IV ONE
[2019-03-25] MEDS ORDERED: ceFAZolin 2 GM in NS PREMIX(*) 2 GM/100 ML BAG IVPB ONE (07:15)
[2019-03-25] MEDS ORDERED: Famotidine IV* 10 MG/ML 2 ML (20 mg) ONE (07:15)
[2019-03-25] MEDS ORDERED: Midazolam* 1 MG/ML 5 ML VIAL (5 MG) ONE (08:45)
[2019-03-25] MEDS ORDERED: ROPIVACAINE 5 MG/ML 30 ML BTL (0.5%) ONE ×2 (08:47→08:50)
[2019-03-25] MEDS ORDERED: Lidocaine 1% MPF ** 5 ML VIAL ONE (08:47)
[2019-03-25] MEDS ORDERED: KETAMINE HCL* 50 MG/ML 10 ML VIAL ONE (09:50)
[2019-03-25] MEDS ORDERED: fentaNYL* 50 MCG/ML 2 ML VIAL (100 MCG VIAL) ONE (10:01)
[2019-03-25] MEDS ORDERED: Lidocaine 2% PF * 5 ML VIAL ONE (10:59)
[2019-03-25] MEDS ORDERED: Ketorolac INJ* 30 MG/ML 1 ML VIAL ONE (10:59)
[2019-03-25] MEDS ORDERED: Dexamethasone IV* 4 MG/ML 1 ML (4 MG) ONE (10:59)
[2019-03-25] MEDS ORDERED: Propofol* 10 MG/ML 20 ML BTL ONE ×2 (10:59→11:43)
[2019-03-25] MEDS ORDERED: Ondansetron INJ* 2 MG/ML VIAL ONE (10:59)
[2019-03-25] MEDS ORDERED: Ondansetron TAB* 4 MG PO PRN (12:31)
[2019-03-25] MEDS ORDERED: diPHENhydraMINE IV* 50 MG/ML 1 ml VIAL (BENADRYL) IV PRN (12:31)
[2019-03-25] MEDS ORDERED: Ondansetron INJ* 2 MG/ML VIAL IV PRN (12:31)
[2019-03-25] MEDS ORDERED: Cyclobenzaprine TAB* 10 MG PO PRN (12:31)
[2019-03-25] MEDS ORDERED: diPHENhydraMINE PO* 25 MG PO PRN (12:31)
[2019-03-25] MEDS ORDERED: Polyethylene Glycol 3350* 17 GM PACKET PO PRN (12:31)
[2019-03-25] MEDS ORDERED: traMADol TAB* 50 MG PO PRN (12:31)
[2019-03-25] MEDS ORDERED: Ondansetron ODT TAB* 4 MG PO PRN (12:31)
[2019-03-25] MEDS ORDERED: Magnesium Hydroxide LIQ* 30 ML UDC PO PRN (12:31)
[2019-03-25] MEDS ORDERED: Naloxone* 0.4 MG/ML 1 ML VIAL IV PRN (12:34)
[2019-03-25] MEDS ORDERED: DiMENhydriNATE IV* 50 MG/ML VIAL IV PUSH PRN (12:34)
[2019-03-25] MEDS ORDERED: Acetaminophen TAB* 325 MG PO PRN (12:34)
--- NOTE | 2019-03-25 13:18 | PN ---
Progress Note - Progress Note Date of Service: 03/25/19 Note: resting in recovery, pain controlled; able to DF/PF, 2+ DP pulse and intact sensation
[2019-03-25] MEDS ORDERED: Acetaminophen TAB* 325 MG ONE (13:39)
[2019-03-25] MEDS ORDERED: oxyCODONE TAB* 5 MG TAB ONE (13:39)
[2019-03-25] MEDS: oxyCODONE TAB* 5 MG TAB PO PRN ×2 (13:41→13:42)
[2019-03-25] MEDS: Lactated Ringers 1000 ML Bag* 1,000 ML IV SCH (14:25)
[2019-03-25] MEDS: Morphine INJ* 2 MG/ML 1 ML SYRINGE (TWO MG - NEW SYRINGE VERSION) IV PRN (14:44)
[2019-03-25] MEDS: oxyCODONE/Acetamin 5/325 MG* TAB PO PRN ×2 (16:55→20:54)
--- NOTE | 2019-03-25 17:18 | OP ---
Operative Report - Blank - Operative Report Date of Operation: 03/25/19 Note: JONN MUSTAFA 1950 Date of Surgery: 03/25/19 Tiffanie Holguin MD Dough Mixer: David YBARRA did help throughout the procedure with preparation of the knee, wound retraction, manipulation of the knee, and wound closure. Anesthesiologist: Tracy De Oliveira MD Anesthesia Type: Spinal Preoperative Diagnosis: Right severe degenerative osteoarthritis of the knee with valgus deformity Postoperative Diagnosis: As above Procedure Performed: Right Total Knee Arthroplasty Tourniquet time: 65 minutes Complications: None Specimen: Bone and cartilage from the right knee joint sent to pathology. Hardware Used: Cemented Blanco and Nephew total knee hardware was used - For the femur a size 8 right legion posterior stabilized femoral component, for the tibia a size 7 right gato II tibial baseplate, for the insert a size 9mm 7-8 posterior stabilized articular polyethylene insert, and for the patella a size 38 3-peg all poly patella. The Apparcando robotic navigation system was used for this case. Brief History/Indication: JONN MUSTAFA was known in clinic and had a history of severe right knee pain and swelling. He failed conservative treatment with anti- inflammatories, pain pills, intra-articular injections and physical therapy. He elected to undergo right total knee arthroplasty due to continued pain and decreased quality of life. Radiographs showed severe end stage osteoarthritis of the knee with bone on bone contact. Informed consent was obtained from the patient. He understood the risks of surgery included but were not limited to: bleeding, infection, damage to nearby structures, intraoperative fracture, nerve palsy, failure of the hardware, early loosening, knee stiffness or loss of motion, anesthesia complications, stroke, heart attack, blood clot and . He wished to proceed. Intra-Operative Findings: Intraoperatively the patient was noted to have severe loss of cartilage in all 3 compartments of the knee. He had a flexion contracture of 20 degrees and valgus deformity of 15 degrees to start the case. Description of the Procedure: JONN MUSTAFA was identified in the preanesthesia unit. His right knee was marked as the correct operative side. Informed consent was signed and placed in the chart. The patient was taken to the operating room and placed under anesthesia without complication. A thacker catheter was placed. A tourniquet was placed on the right thigh. The right lower extremity was prepped and draped in the usual sterile fashion. Preoperative time-out was made to correctly identify the patient, side and site. Appropriate intraoperative antibiotics were given within one hour of incision. Tourniquet was inflated. A midline incision was made and carried sharply down to the extensor mechanism. A new 10 blade was used to make a standard medial parapatellar arthrotomy. The patella was subluxed laterally. Electrocautery was used to dissect soft tissue off the superomedial tibia to the midsagittal plane. The knee was flexed up. The anterior horn of the lateral meniscus and the ACL/PCL were sharply incised. The two checkpoint screws and the four pins were placed in the femur and tibia. The arrays were assembled and the anatomy was mapped using the Apparcando robotic system checkpoints. The hardware size and position was decided upon using the Apparcando robotic system. The Apparcando robotic margoth was used to make the distal femoral cut. The external rotation guide was pinned on the distal femur and the distal femur was sized to a size 8. The size 8 multi-cutting jig was pinned on the distal femur. The oscillating saw was used to make the appropriate 4 chamfer cuts. Next the PCL was completely released. The extramedullary tibial cutting guide was pinned on the proximal tibia using the Taomeeio angular guide. The oscillating saw was used to make the proximal tibial cut perpendicular to the mechanical axis of the tibia. The bone was carefully removed. The knee was brought out into full extension. The spacer block was placed and had excellent fit with the knee in full extension. The medial and lateral ligaments were well balanced. The flexion and extension gaps were well balanced. The knee was flexed up. Lamina leather stretcher was placed both medially and laterally. Any remaining meniscus was removed with electrocautery. Curved osteotome was used to remove any posterior osteophytes. The tibial tray and drop agustin were placed and confirmed a satisfactory tibial cut. The size 8 right femoral trial was impacted onto the distal femur. This trial had excellent fit and stability. The box for the posterior stabilized implant was prepared using a box cut osteotome and a reamer. Next a tibial tray trial and 9 mm insert trial was placed. The knee was taken through a range of motion and had full extension to 130 degrees of flexion. Patellofemoral tracking was satisfactory. Final Navio checkpoints were entered before the two screws and four pins were removed without complication. The patella was inverted and sized to a size 38. Three peg holes were drilled through the size 38 drill guide. The trial patella was placed and the knee was taken through a range of motion. There was satisfactory patellofemoral tracking. All trials were removed. The tibia was subluxed anteriorly and sized to a size 7. The proximal tibial was prepared with a size 7 keel punch. All bony cut surfaces were irrigated with sterile saline and dried. Final implants were cemented into place starting with the tibia, followed by the femur, and last the patella. A 9 mm insert trial was placed and the knee was brought into full extension. Tourniquet was turned down and the knee was copiously irrigated with sterile saline. Electrocautery was used to obtain meticulous hemostasis. Once the cement had fully cured, the insert trial was removed. Any excess cement was removed from around the hardware and capsule. Final insert chosen was a 9 mm posterior stabilized Gato II articular insert size 7-8. Stability of the insert was checked and noted to be stable. The extensor mechanism was closed using number 1 vicryls. The rest of the incision was closed in a layered fashion using 0 and 2-0 vicryls. The skin was closed using 3-0 nylon suture. Sterile xeroform, 4x4s and webril were used to cover the incision. Khai wrap and cold pack were used to cover the dressings. The patients anesthesia was reversed without difficulty. She was taken to the PACU in stable condition. Intended weight-bearing will be as tolerated.
[2019-03-25] MEDS: ceFAZolin 1 GM ADVAN(*) 1 GM in NS 0.9% 50 ML* 50 ML IVPB SCH (18:52)
[2019-03-25] MEDS: Magnesium Hydroxide LIQ* 30 ML UDC PO SCH (20:54)
[2019-03-25] MEDS: Docusate CAP* 100 MG PO SCH (20:54)
[2019-03-25] MEDS: Acetaminophen TAB* 325 MG PO SCH (20:58)
[2019-03-26] MEDS: Lactated Ringers 1000 ML Bag* 1,000 ML IV SCH (00:52)
[2019-03-26] MEDS: ceFAZolin 1 GM ADVAN(*) 1 GM in NS 0.9% 50 ML* 50 ML IVPB SCH ×2 (01:47→09:55)
[2019-03-26] MEDS: oxyCODONE/Acetamin 5/325 MG* TAB PO PRN ×4 (01:50→12:34)
[2019-03-26] MEDS: Acetaminophen TAB* 325 MG PO SCH ×2 (04:15→12:44)
[2019-03-26] MEDS: oxyCODONE TAB* 5 MG TAB PO PRN ×3 (04:55→14:56)
[2019-03-26 04:59] LABS: Hematocrit 33 % (42-52); Hemoglobin 11.1 g/dL (14.0-18.0); Mean Platelet Volume 6.8 fL (7.4-10.4); Platelet Count 172 10^3/uL (150-450)
[2019-03-26 05:16] LABS: BUN/Creatinine Ratio 15.8 (8-20); Calcium 8.6 mg/dL (8.6-10.3); EGFR African American 124.2 (>60); EGFR Non-African American 102.6 (>60)
[2019-03-26] MEDS: Morphine INJ* 2 MG/ML 1 ML SYRINGE (TWO MG - NEW SYRINGE VERSION) IV PRN (07:25)
[2019-03-26] MEDS ORDERED: Vitamin THERAPEUTIC TAB PO SCH (09:00)
[2019-03-26] MEDS ORDERED: Apixaban* 2.5 MG TAB PO SCH (09:00)
--- NOTE | 2019-03-26 09:05 | PN ---
Progress Note - Progress Note Date of Service: 03/26/19 SOAP: Subjective: [Pt seen sitting up in bed. States that the pain is well controlled although he feels a little foggy. He is currently taking morphine and oxycodone. He denies any chest pain, SOB. nausea or vomiting. ] Objective: [General: Pt is alert and oriented x3. NAD. MSK, RLE: Right knee dressing is c/d/i. NVI. +df/pf. Calf soft and non tender. Dressing changed. Incision is c/d/i Vital Signs Temp 99.0 F 03/26/19 08:25 Pulse 68 03/26/19 08:25 Resp 18 03/26/19 08:25 BP 143/73 03/26/19 08:25 Pulse Ox 100 03/26/19 08:25 Intake & Output 03/25/19 03/26/19 03/26/19 18:59 06:59 18:59 Intake Total 2780 2480 Output Total 875 950 Balance 1905 1530 Weight 204 lb 9.6 oz Intake: IV Fluids 1500 980 LR 1500 980 Oral 1280 1500 Output: Urine 300 Caputo 675 650 Estimated Blood Loss 200 ] Assessment: [POD 1 RTKA ] Plan: [Continue with eliquis x30 days We discussed trying to achieve pain control with just oxycodone. This will also help with the fuzzy feeling he has had. PT Possible DC today should PT go well and should he be off the morphine ]
[2019-03-26] MEDS: Docusate CAP* 100 MG PO SCH (09:53)
[2019-03-26] MEDS: Magnesium Hydroxide LIQ* 30 ML UDC PO SCH (09:54)
--- NOTE | 2019-03-26 13:25 | DS ---
Orthopedic Discharge Summary - Discharge Summary Date of Admission:03/25/19 Date of Discharge: 03/26/19 Date of Surgery: 03/25/2019 Attending Orthopedic Provider: Dr. Holguin Pre-operative Diagnosis: right knee osteoarthritis Operative Procedure: right total knee arthroplasty Disposition of Patient: home Condition of Patient: good History: JONN MUSTAFA is a 68 year old M with years of increasingly severe right knee pain. Patient has failed conservative management and has elected to undergo a right total knee replacement Hospital Course: JONN was admitted to [facility] on 03/25/19. Patient underwent a right total knee replacement without complication followed by a brief recovery in PACU and transfer to the Short Stay Surgical Unit in stable condition. Our hospitalist service, physical therapy and occupational therapy also participated in this patients care. Post-op day 1: patient was alert and in no acute distress. Dressing was clean, dry and intact. Operative extremity dorsiflexion and plantarflexion intact, sensation intact to light touch distally, DP2+. Dressing was changed, incision was clean, dry and intact. Patient was deemed to be medically and orthopedically stable for discharge. Physical therapy goals were met. Home Medications Medication Instructions Recorded Confirmed Type Leuprolide 11.25 MG KIT [Lupron 11.25 mg IM . Q 3 MONTHS 09/25/17 03/12/19 History Depot*] Cyanocobalamin (Vitamin B-12) 1,000 mcg PO SEE INSTRUCTIONS 12/31/18 03/12/19 History [Vitamin B-12] Multivitamins/Minerals TAB* 1 tab PO DAILY 12/31/18 03/12/19 History [Theragran/minerals TAB*] Acetaminophen [Acetaminophen Extra 2 tab PO ONCE PRN 03/12/19 03/12/19 History Strength] Discharge Instructions following Orthopedic Surgery: Activity: * Weight Bearing as tolerated * Continue physical therapy and occupational therapy exercises as shown Wound care: * OK to shower on post-op day 3, no bathing, swimming, or submerging wound. * Use gentle soap, pat dry. Cover with gauze, LAW wrap or tape. * Visiting home nurse to do wound checks. Call Orthopedic office for: * Increased drainage * Redness * Increased pain * Fever Go to ER with shortness of breath or chest pain. Diet: * Regular diet * Increase fluids and fiber to prevent constipation. * Continue to use stool softeners, call office if no bowel motion within 48 hours. Medications See Home Medication List in your packet for medications that you should take after discharge. DVT Prophylaxis: Eliquis Dosin.5 mg, 1 tab every 12 hours x 30 days Pain Control: Percocet Dosin/325 mg 1-2 tabs by mouth every 4-6 hours as needed for pain. Maximum of 10 tabs per day. Please note that Percocet contains Tylenol (acetaminophen). Maximum daily dose of Tylenol is 4000 mg from all sources. Antibiotics are required prior to any dental work. FOLLOW UP: Follow up with [[facility]] Within 10-14 days, call for appointment Please call our office with any questions or concerns ([phone])
[2019-03-26 16:07] VITALS: BP 142/64
[2019-03-27] MEDS ORDERED: Bisacodyl SUPP* 10 MG SUPP PR PRN (12:31)
== END 2019-03-26 17:25 | disposition home or self-care (01) ==
LOC: OR 07:10 → EDSTATUS 09:00 → SSU 12:31
PROVIDERS: ADMIT Orthopaedic Surgery Adult Reconstructive Orthopaedic Surgery; ATTEND Orthopaedic Surgery Adult Reconstructive Orthopaedic Surgery
DX: M17.11 Unilateral primary osteoarthritis, right knee (principal); Z79.899 Other long term (current) drug therapy; Z85.46 Personal history of malignant neoplasm of prostate; Z79.01 Long term (current) use of anticoagulants; Z13.220 Encounter for screening for lipoid disorders; D40.0 Neoplasm of uncertain behavior of prostate
CPT/HCPCS: 36415; 80048; 85014; 85018; 85049; 88305; 88311; 96365; 96366; 96375; 96376; A9270-GY; C1776; G0378; G8978-GP-CK; G8979-GP-CI; J0690; J1100; J1885; J2250; J2270; J2405; J2704; J2795; J3010

== ENCOUNTER 2022-06-25 10:59 | Inpatient (IN) ==
[2022-06-25 12:11] LABS: ABS Lymphocytes 0.4 10^3/ul (1.0-4.8); ABS Monocytes 0.4 10^3/ul (0-0.8); ABS Neutrophils 6.1 10^3/ul (1.5-7.7); Eosinophil % 0.1 %; Hematocrit 41 % (42-52); Hemoglobin 13.8 g/dL (14.0-18.0); Lymphocyte % 5.4 %; Mean Corpuscular HGB Conc 34 g/dL (31-36); Mean Corpuscular Hemoglobin 31 pg (27-31); Mean Corpuscular Volume 92 fL (80-94); Mean Platelet Volume 7.9 fL (7.4-10.4); Platelet Count 173 10^3/uL (150-450); Red Blood Count 4.47 10^6 /uL (4.18-5.48); Red Cell Distribution Width 14 % (10-15); White Blood Count 6.9 10^3/uL (3.5-10.8)
[2022-06-25 12:23] LABS: Albumin 4.2 g/dL (3.2-5.2); Potassium 3.5 mmol/L (3.5-5.0); Total Bilirubin 0.8 mg/dL (0.2-1.0)
[2022-06-25 12:29] LABS: Albumin/Globulin Ratio 1.1 (1-3); Creatinine, Serum 1.64 mg/dL (0.67-1.17); Globulin 3.7 g/dL (2-4); Total Protein 7.9 g/dL (6.4-8.9)
[2022-06-25] MEDS ORDERED: Cefepime 2 GM VIAL ONE (14:36)
[2022-06-25] MEDS ORDERED: Ondansetron 4 mg VIAL 2 MG/ML 2 ml VIAL IV PRN (15:25)
[2022-06-25] MEDS: Enoxaparin 40 MG/0.4 ML SYR SUBCUT SCH (17:38)
[2022-06-25 19:11] LABS: ABS Lymphocytes 0.5 10^3/ul (1.0-4.8); ABS Monocytes 0.5 10^3/ul (0-0.8); ABS Neutrophils 5.1 10^3/ul (1.5-7.7); Eosinophil % 0.5 %; Hematocrit 35 % (42-52); Hemoglobin 11.9 g/dL (14.0-18.0); Lymphocyte % 7.9 %; Mean Corpuscular HGB Conc 34 g/dL (31-36); Mean Corpuscular Hemoglobin 31 pg (27-31); Mean Corpuscular Volume 91 fL (80-94); Mean Platelet Volume 7.6 fL (7.4-10.4); Platelet Count 141 10^3/uL (150-450); Red Blood Count 3.88 10^6 /uL (4.18-5.48); Red Cell Distribution Width 14 % (10-15); White Blood Count 6.1 10^3/uL (3.5-10.8)
[2022-06-25 19:47] LABS: Urine Appearance Cloudy; Urine Bilirubin Negative (Negative); Urine Blood 1+ (Negative); Urine Color Yellow; Urine Glucose Negative (Negative); Urine Ketones Trace (Negative); Urine Nitrite Negative (Negative); Urine Protein 2+(100 mg/dL) (Negative); Urine Specific Gravity 1.025 (1.002-1.030); Urine Urobilinogen Negative (Negative)
[2022-06-25 19:55] LABS: Urine Bacteria Absent (Absent); Urine Red Blood Cell Absent (Absent); Urine Squamous Epithelial Cell Present (Absent); Urine White Blood Cell Trace(0-5/hpf) (Absent)
[2022-06-25 20:26] LABS: Calcium 7.7 mg/dL (8.6-10.3); Potassium 3.5 mmol/L (3.5-5.0)
[2022-06-25] MEDS: NS 0.9% 1000 ml BAG 1,000 ML IV SCH (21:55)
[2022-06-25] MEDS: Cefepime 2 GM in Dextrose 2 GM/50 ML BAG IV SCH (21:59)
[2022-06-25 22:37] LABS: Creatinine, Serum 1.19 mg/dL (0.67-1.17); eGFR CKD-EPI 66.1 (>60)
[2022-06-26] MEDS: Cefepime 2 GM in Dextrose 2 GM/50 ML BAG IV SCH ×3 (05:45→21:21)
[2022-06-26] MEDS: Multivitamins/Minerals TAB PO SCH (08:30)
[2022-06-26] MEDS: NS 0.9% 1000 ml BAG 1,000 ML IV SCH (13:03)
[2022-06-26] MEDS: Enoxaparin 40 MG/0.4 ML SYR SUBCUT SCH (16:46)
[2022-06-26] MEDS ORDERED: Metoprolol Tartrate 5 mg VIAL 5 ml VIAL (1 mg/ml) IV ONE (17:57)
[2022-06-26 20:14] LABS: C Reactive Protein 115.75 mg/L (<8.01); Magnesium 2.2 mg/dL (1.9-2.7)
[2022-06-26] MEDS ORDERED: Potassium Chlor 20 meq TAB.ER PO ONE (21:00)
[2022-06-27] MEDS: NS 0.9% 1000 ml BAG 1,000 ML IV SCH (03:18)
[2022-06-27] MEDS: Cefepime 2 GM in Dextrose 2 GM/50 ML BAG IV SCH ×2 (06:09→14:48)
[2022-06-27 06:34] LABS: ABS Eosinophils 0.1 10^3/ul (0-0.6); ABS Lymphocytes 0.5 10^3/ul (1.0-4.8); ABS Monocytes 0.4 10^3/ul (0-0.8); ABS Neutrophils 2.6 10^3/ul (1.5-7.7); Eosinophil % 2.2 %; Hematocrit 33 % (42-52); Hemoglobin 11.2 g/dL (14.0-18.0); Lymphocyte % 14.2 %; Mean Corpuscular HGB Conc 34 g/dL (31-36); Mean Corpuscular Hemoglobin 31 pg (27-31); Mean Corpuscular Volume 91 fL (80-94); Platelet Count 131 10^3/uL (150-450); Red Blood Count 3.58 10^6 /uL (4.18-5.48); Red Cell Distribution Width 14 % (10-15); White Blood Count 3.6 10^3/uL (3.5-10.8)
[2022-06-27 06:58] LABS: Albumin/Globulin Ratio 1.3 (1-3); C Reactive Protein 97.33 mg/L (<8.01); Calcium 7.5 mg/dL (8.6-10.3); Creatinine, Serum 0.66 mg/dL (0.67-1.17); Globulin 2.3 g/dL (2-4); Magnesium 2.2 mg/dL (1.9-2.7); Potassium 3.7 mmol/L (3.5-5.0); Total Bilirubin 0.5 mg/dL (0.2-1.0); Total Protein 5.3 g/dL (6.4-8.9); eGFR CKD-EPI 101.5 (>60)
[2022-06-27 07:38] LABS: Erythrocyte Sed Rate 92 mm/Hr (0-19)
[2022-06-27] MEDS: Multivitamins/Minerals TAB PO SCH (08:49)
[2022-06-27 10:08] LABS: TSH Ultra Thyroid Stim Horm 5.2 mcIU/mL (0.34-5.60)
[2022-06-27 12:22] VITALS: BP 142/84
== END 2022-06-27 15:10 | disposition home or self-care (01) | DRG 641 ==
LOC: CHOA 10:59 → MEDTELE 15:25
PROVIDERS: ADMIT Internal Medicine Hematology & Oncology; ATTEND Internal Medicine Hematology & Oncology

== ENCOUNTER 2022-09-30 16:04 | Observation (INO) ==
[2022-09-30] MEDS ORDERED: Vancomycin 1,500 MG in NS 0.9% 250 ml 250 ML IVPB ONE (17:55)
[2022-09-30 18:12] LABS: ABS Lymphocytes 0.3 10^3/uL (1.0-4.8); ABS Monocytes 0.3 10^3/uL (0.0-1.1); ABS Neutrophils 6.9 10^3/uL (1.5-7.6); Hematocrit 36.2 % (38-53); Hemoglobin 12.6 g/dL (13.2-16.3); Lymphocyte % 4.7 %; Mean Corpuscular Hemoglobin 31.7 pg (27-33); Mean Corpuscular Hgb Conc 34.9 g/dL (31-36); Mean Platelet Volume 7.7 fL (7.5-11.2); Platelet Count 150 10^3/uL (150-450); Red Blood Count 3.98 10^6/uL (4.06-5.63); Red Cell Distribution Width 14.3 % (12-17); White Blood Count 7.5 10^3/uL (3.6-10.2)
[2022-09-30 18:29] LABS: Albumin 4.1 g/dL (3.2-5.2); Albumin/Globulin Ratio 1.5 (1-3); C Reactive Protein 218.59 mg/L (<8.01); Calcium 8.6 mg/dL (8.6-10.3); Creatinine, Serum 1.15 mg/dL (0.67-1.17); Globulin 2.7 g/dL (2-4); Potassium 3.6 mmol/L (3.5-5.0); Total Bilirubin 1.3 mg/dL (0.2-1.0); Total Protein 6.8 g/dL (6.4-8.9); eGFR CKD-EPI 68.5 (>60)
[2022-09-30] MEDS ORDERED: Lactated Ringers 1000 ml BAG 1,000 ML IV ONE (18:38)
[2022-09-30 21:45] LABS: Urine Appearance Cloudy; Urine Bilirubin Negative (Negative); Urine Blood 1+ (Negative); Urine Color Yellow; Urine Glucose Negative (Negative); Urine Ketones 1+ (Negative); Urine Nitrite Negative (Negative); Urine Protein 1+(30 mg/dL) (Negative); Urine Urobilinogen Negative (Negative)
[2022-09-30 21:47] LABS: Urine Amorphous Crystals Present (Absent); Urine Bacteria 1+ (Absent); Urine Red Blood Cell Trace(0-2/hpf) (Absent); Urine Squamous Epithelial Cell Present (Absent); Urine White Blood Cell Trace(0-5/hpf) (Absent); Urine Yeast Present (Absent)
[2022-09-30] MEDS: Cefepime 2 GM in Dextrose 2 GM/50 ML BAG IV SCH (21:51)
[2022-09-30] MEDS: Lactated Ringers 1000 ml BAG 1,000 ML IV SCH (21:52)
[2022-09-30] MEDS: Enoxaparin 40 MG/0.4 ML SYR SUBCUT SCH (22:38)
[2022-09-30] MEDS ORDERED: Vancomycin per Pharmacy 1 EA NOTE FOLLOW UP SCH ×2 (23:00)
[2022-10-01] MEDS: Cefepime 2 GM in Dextrose 2 GM/50 ML BAG IV SCH (05:34)
[2022-10-01 05:49] LABS: ABS Lymphocytes 0.5 10^3/uL (1.0-4.8); ABS Monocytes 0.2 10^3/uL (0.0-1.1); ABS Neutrophils 4.3 10^3/uL (1.5-7.6); ABS Nucleated RBC 0.01 10^3/ul; Eosinophil % 0.6 %; Hematocrit 32.2 % (38-53); Hemoglobin 11.2 g/dL (13.2-16.3); Lymphocyte % 10.1 %; Mean Corpuscular Hgb Conc 34.7 g/dL (31-36); Mean Corpuscular Volume 92.1 fL (80-97); Mean Platelet Volume 7.4 fL (7.5-11.2); Nucleated Red Blood Cells % 0.2 /100 WBC (0.0-0.4); Platelet Count 116 10^3/uL (150-450); Red Blood Count 3.49 10^6/uL (4.06-5.63); Red Cell Distribution Width 14.2 % (12-17); White Blood Count 5.1 10^3/uL (3.6-10.2)
[2022-10-01] MEDS ORDERED: Vancomycin 1000 MG in NS 0.9% 250 ML IVPB SCH (06:30)
[2022-10-01 06:42] LABS: Albumin 3.2 g/dL (3.2-5.2); Albumin/Globulin Ratio 1.5 (1-3); Calcium 7.8 mg/dL (8.6-10.3); Creatinine, Serum 0.95 mg/dL (0.67-1.17); Globulin 2.2 g/dL (2-4); Magnesium 1.9 mg/dL (1.9-2.7); Potassium 3.5 mmol/L (3.5-5.0); Total Bilirubin 0.8 mg/dL (0.2-1.0); Total Protein 5.4 g/dL (6.4-8.9); eGFR CKD-EPI 86.1 (>60)
[2022-10-01] MEDS ORDERED: Potassium Chlor 20 meq TAB.ER PO ONE (07:35)
[2022-10-01] MEDS: Lactated Ringers 1000 ml BAG 1,000 ML IV SCH (08:58)
[2022-10-01] MEDS ORDERED: cefTRIAXone 1 gm/50 mL D5W 1 GM/50 ML BAG IV SCH (17:00)
[2022-10-01] MEDS: Clotrimazole 1% CREAM 30 gm TOPICAL SCH (22:07)
[2022-10-01] MEDS: Enoxaparin 40 MG/0.4 ML SYR SUBCUT SCH (22:12)
[2022-10-02] MEDS ORDERED: Vancomycin Trough Check NOTE FOLLOW UP ONE (06:00)
[2022-10-02] MEDS: Clotrimazole 1% CREAM 30 gm TOPICAL SCH (10:21)
[2022-10-02 10:39] VITALS: BP 124/66
[2022-10-03 20:28] LABS: Anaplasma phagocytophilum Negative (Negative); B. miyamotoi PCR, B Negative (Negative); Babesia divergens/MO-1 Negative (Negative); Babesia ducani Negative (Negative); Ehrlichia chaffeensis Negative (Negative); Ehrlichia ewingii/canis Negative (Negative); Ehrlichia muris eauclairensis Negative (Negative)
== END 2022-10-02 12:00 | disposition home or self-care (01) ==
LOC: ED 16:04 → EDHOLD 16:04 → SUATTDRO 18:55 → EDHOLD 10-01 16:15
PROVIDERS: ADMIT Internal Medicine; ATTEND Internal Medicine

== ENCOUNTER 2024-06-18 12:16 | Inpatient (IN) ==
[2024-06-18 16:47] LABS: ABS Lymphocytes 0.3 10^3/uL (1.0-4.8); ABS Monocytes 0.3 10^3/uL (0.0-1.1); ABS Neutrophils 5.5 10^3/uL (1.5-7.6); ABS Nucleated RBC 0.01 10^3/ul; Eosinophil % 0.2 %; Hematocrit 38.1 % (38-53); Hemoglobin 13.3 g/dL (13.2-16.3); Lymphocyte % 5.4 %; Mean Corpuscular Hemoglobin 32.1 pg (27-33); Mean Corpuscular Hgb Conc 34.9 g/dL (31-36); Mean Corpuscular Volume 91.9 fL (80-97); Mean Platelet Volume 7.9 fL (7.5-11.2); Nucleated Red Blood Cells % 0.1 %/100WBC (0.0-0.8); Platelet Count 135 10^3/uL (150-450); Red Blood Count 4.14 10^6/uL (4.06-5.63); Red Cell Distribution Width 13.8 % (12-17); White Blood Count 6.2 10^3/uL (3.6-10.2)
[2024-06-18 17:17] LABS: Albumin 3.7 g/dL (3.5-5.7); Albumin/Globulin Ratio 1.5 (1-3); C Reactive Protein 243.65 mg/L (<8.01); Calcium 8.4 mg/dL (8.6-10.3); Creatinine, Serum 0.96 mg/dL (0.67-1.17); Globulin 2.4 g/dL (2-4); Potassium 3.6 mmol/L (3.5-5.0); Total Bilirubin 1.1 mg/dL (0.2-1.0); Total Protein 6.1 g/dL (6.4-8.9); eGFR CKD-EPI 84.5 (>60)
[2024-06-18] MEDS: cefTRIAXone 2 gm/50 mL D5W 2 GM/50 ML BAG IV ONE (19:11)
[2024-06-18] MEDS ORDERED: Sulfur Hexaflouride MICROSPHR 25 MG VIAL IV PRN (21:51)
[2024-06-19] MEDS: cefTRIAXone 2 gm/50 mL D5W 2 GM/50 ML BAG IV SCH ×2 (01:18→16:22)
[2024-06-19] MEDS: Penicillin G Potassium IV 3,000,000 UNITS in NS 0.9% 100 ml BAG 100 ML IVPB SCH (10:24)
[2024-06-19 15:54] LABS: Osmolality Serum 275 mOsm/kg (275-295)
[2024-06-19] MEDS ORDERED: cefTRIAXone 2 gm/50 mL D5W 2 GM/50 ML BAG IV SCH (18:00)
[2024-06-19 18:40] LABS: Urine Osmo 546 mOsm/kg (150-1150)
[2024-06-20 05:13] LABS: ABS Lymphocytes 0.3 10^3/uL (1.0-4.8); ABS Monocytes 0.2 10^3/uL (0.0-1.1); ABS Neutrophils 3.5 10^3/uL (1.5-7.6); ABS Nucleated RBC 0.01 10^3/ul; Eosinophil % 1.1 %; Hematocrit 34.4 % (38-53); Hemoglobin 12.2 g/dL (13.2-16.3); Lymphocyte % 6.7 %; Mean Corpuscular Hgb Conc 35.3 g/dL (31-36); Mean Corpuscular Volume 90.6 fL (80-97); Mean Platelet Volume 7.9 fL (7.5-11.2); Nucleated Red Blood Cells % 0.2 %/100WBC (0.0-0.8); Platelet Count 152 10^3/uL (150-450); Red Cell Distribution Width 13.6 % (12-17); White Blood Count 4.1 10^3/uL (3.6-10.2)
[2024-06-20 06:05] LABS: Calcium 7.9 mg/dL (8.6-10.3); Creatinine, Serum 0.93 mg/dL (0.67-1.17); Magnesium 2.1 mg/dL (1.9-2.7); Phosphorus 2.8 mg/dL (2.5-5.0); Potassium 3.8 mmol/L (3.5-5.0); eGFR CKD-EPI 87.8 (>60)
[2024-06-20] MEDS: Influenza Vaccine *TRI* 2024-25* 0.5 ML SYRINGE IM ONE (08:33)
[2024-06-20] MEDS: Pneumococcal 20-Valent Conj 0.5 ML SYR Vaccine IM ONE (08:35)
[2024-06-20] MEDS ORDERED: Ondansetron ODT 4 mg TAB 4 MG TAB SL PRN (13:20)
[2024-06-20] MEDS: Ondansetron 4 mg VIAL 2 MG/ML 2 ml VIAL IV ONE (13:37)
[2024-06-20] MEDS: Lactated Ringers 1000 ml BAG 1,000 ML IV ONE (19:00)
[2024-06-20 19:44] LABS: ALT 28 U/L (7-52); Albumin 3.2 g/dL (3.5-5.7); Albumin/Globulin Ratio 1.4 (1-3); Alkaline Phosphatase 71 U/L (35-149); Anion Gap 9 mmol/L (2-16); Blood Urea Nitrogen 17 mg/dL (6-24); CO2 Carbon Dioxide 24 mmol/L (22-32); Calcium 7.4 mg/dL (8.6-10.3); Chloride 102 mmol/L (101-111); Globulin 2.3 g/dL (2-4); Glucose 105 mg/dL (70-100); Sodium 135 mmol/L (135-145); Total Bilirubin 0.5 mg/dL (0.2-1.0); Total Protein 5.5 g/dL (6.4-8.9); eGFR CKD-EPI 91.3 (>60)
[2024-06-20] MEDS: Famotidine IV 10 MG/ML 2 ml VIAL (20 mg) IV SLOW PU SCH (20:41)
[2024-06-20 21:26] LABS: Potassium Redraw 3.6 mmol/L (3.5-5.0)
[2024-06-21 06:32] LABS: Hematocrit 32.2 % (38-53); Hemoglobin 11.1 g/dL (13.2-16.3); Mean Corpuscular Hemoglobin 31.6 pg (27-33); Mean Corpuscular Hgb Conc 34.5 g/dL (31-36); Mean Corpuscular Volume 91.7 fL (80-97); Mean Platelet Volume 7.6 fL (7.5-11.2); Platelet Count 145 10^3/uL (150-450); Red Blood Count 3.51 10^6/uL (4.06-5.63); Red Cell Distribution Width 13.6 % (12-17); White Blood Count 2.9 10^3/uL (3.6-10.2)
[2024-06-21 07:08] LABS: Albumin 2.9 g/dL (3.5-5.7); Albumin/Globulin Ratio 1.3 (1-3); C Reactive Protein 89.87 mg/L (<8.01); Creatinine, Serum 0.97 mg/dL (0.67-1.17); Globulin 2.3 g/dL (2-4); Magnesium 2.2 mg/dL (1.9-2.7); Phosphorus 2.4 mg/dL (2.5-5.0); Potassium 3.4 mmol/L (3.5-5.0); Total Bilirubin 0.4 mg/dL (0.2-1.0); Total Protein 5.2 g/dL (6.4-8.9); eGFR CKD-EPI 83.5 (>60)
[2024-06-21 07:29] LABS: ABS Lymphocytes 0.4 10^3/uL (1.0-4.8); ABS Monocytes 0.5 10^3/uL (0.0-1.1); Eosinophil % 0.2 %; Lymphocyte % 14.9 %; Nucleated Red Blood Cells % 0.1 %/100WBC (0.0-0.8)
[2024-06-21 07:30] LABS: RBC Morphology Normal (Normal)
[2024-06-21] MEDS: KCL 20 MEQ/100 ML IVPREMIX 20 MEQ/100 ML BAG IV ONE (08:20)
[2024-06-21] MEDS: Potassium & Sodium Phos 250 mg = 1 PACKET PO SCH (20:02)
[2024-06-22 06:18] LABS: Hematocrit 33.9 % (38-53); Hemoglobin 11.6 g/dL (13.2-16.3); Mean Corpuscular Hemoglobin 31.2 pg (27-33); Mean Corpuscular Hgb Conc 34.2 g/dL (31-36); Mean Corpuscular Volume 91.2 fL (80-97); Mean Platelet Volume 7.8 fL (7.5-11.2); Platelet Count 183 10^3/uL (150-450); Red Blood Count 3.72 10^6/uL (4.06-5.63); Red Cell Distribution Width 13.7 % (12-17); White Blood Count 2.9 10^3/uL (3.6-10.2)
[2024-06-22 06:40] LABS: Calcium 7.5 mg/dL (8.6-10.3); Creatinine, Serum 0.79 mg/dL (0.67-1.17); Magnesium 2.4 mg/dL (1.9-2.7); Phosphorus 2.6 mg/dL (2.5-5.0); Potassium 3.6 mmol/L (3.5-5.0)
[2024-06-22 06:45] LABS: ABS Eosinophils 0.1 10^3/uL (0.0-0.5); ABS Lymphocytes 0.7 10^3/uL (1.0-4.8); ABS Monocytes 0.4 10^3/uL (0.0-1.1); ABS Neutrophils 1.7 10^3/uL (1.5-7.6); Eosinophil % 2.3 %; Lymphocyte % 24.1 %; Nucleated Red Blood Cells % 0.1 %/100WBC (0.0-0.8)
[2024-06-22] MEDS: Calcium Carb (TUMS) 500 mg CHEW TAB PO ONE (07:14)
[2024-06-22] MEDS: Calcium Carb (TUMS) 500 mg CHEW TAB PO SCH (08:49)
[2024-06-22] MEDS: Potassium Chlor 20 meq TAB.ER PO ONE (08:50)
[2024-06-22] MEDS: ENZALUTAMIDE 80 MG PO SCH (09:02)
[2024-06-22 09:42] LABS: C Reactive Protein 49.46 mg/L (<8.01)
[2024-06-22 18:26] VITALS: BP 161/69
[2024-06-22 20:32] LABS: Adenovirus F40/41 Negative (Negative); Astrovirus Negative (Negative); Cryptosporidium species Negative (Negative); Cyclospora cayetanensis Negative (Negative); Entamoeba histolytica Negative (Negative); Enteroaggregative E.coli(EAEC) Negative (Negative); Enteropathogenic Ecoli(EPEC) Negative (Negative); Enterotoxigenic Ecoli(ETEC) Negative (Negative); Norovirus GI/GII Positive (Negative); Plesiomonas shigelloides Negative (Negative); Salmonella species Negative (Negative); Sapovirus Negative (Negative); Shiga toxin producing E. coli Negative (Negative); Shigella/Enteroinvasive E.coli Negative (Negative); Specimen Source STOOL; Vibrio cholerae Negative (Negative); Yersinia species Negative (Negative)
== END 2024-06-22 19:56 | disposition home or self-care (01) | DRG 603 ==
LOC: ED 12:16 → EDHOLD 12:16 → SUATTDRO 20:38 → MEDTELE 21:19
PROVIDERS: ADMIT Student in an Organized Health Care Education/Training Program; ATTEND Internal Medicine